=== PATIENT | female | born 1995 | race Caucasian/White ===

== ENCOUNTER 2016-10-15 15:25 | Emergency (ER) | payer MEDICAID ==
[2016-10-15 15:38] VITALS: BP 137/65
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
== END 2016-10-15 17:14 | disposition home or self-care (01) ==
LOC: ER 15:25
DX: O9A.211 Injury, poisoning and certain other consequences of external causes complicating pregnancy, first trimester (principal); S70.02XA Contusion of left hip, initial encounter; W18.09XA Striking against other object with subsequent fall, initial encounter; O99.89 Other specified diseases and conditions complicating pregnancy, childbirth and the puerperium; R10.30 Lower abdominal pain, unspecified; O26.891 Other specified pregnancy related conditions, first trimester; M54.5 Low back pain; Z3A.01 Less than 8 weeks gestation of pregnancy; Z87.81 Personal history of (healed) traumatic fracture
CPT/HCPCS: 99283

== ENCOUNTER 2016-10-16 09:28 | Emergency (ER) | payer MEDICAID ==
[2016-10-16 09:34] VITALS: BP 139/78
[2016-10-16 10:18] LABS: APPEARANCE,URINE SLIGHTLY-CLOUDY; BILIRUBIN,URINE NEGATIVE (NEGATIVE); GLUCOSE, URINE NEGATIVE (NEGATIVE); KETONES,URINE NEGATIVE (NEGATIVE); LEUKOCYTE ESTERASE,URINE NEGATIVE (NEGATIVE); NITRITE,URINE NEGATIVE (NEGATIVE); PROTEIN,URINE NEGATIVE (NEGATIVE); UROBILINOGEN,URINE NEGATIVE mg/dL (<2.0)
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
== END 2016-10-16 10:31 | disposition home or self-care (01) ==
LOC: ER 09:28
DX: O26.891 Other specified pregnancy related conditions, first trimester (principal); R10.2 Pelvic and perineal pain
CPT/HCPCS: 81001; 81025; 87086; 99284

== ENCOUNTER 2016-12-18 15:18 | Emergency (ER) | payer MEDICAID ==
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
[2016-12-18 17:57] LABS: ABSOLUTE EOSINOPHILS # (AUTO) 0.1 10^3/uL (0.0-0.6); ABSOLUTE LYMPHOCYTES (AUTO) 2.1 10^3/uL (0.5-4.7); ABSOLUTE MONOCYTES (AUTO) 0.9 10^3/uL (0.1-1.4); ABSOLUTE NEUT (AUTO) 7.5 10^3/uL (1.7-8.2); BASOPHILS % (AUTO) 0.3 % (0-2); EOSINOPHILS % (AUTO) 0.7 % (0-6); HEMATOCRIT 38.9 % (36.0-47.0); HEMOGLOBIN 13.1 g/dL (12.0-15.5); HGB HCT DIFFERENCE 0.4; LYMPHOCYTES % (AUTO) 19.9 % (13-45); MEAN CORPUSCULAR HEMOGLOBIN 28.6 pg (27.0-33.4); MEAN CORPUSCULAR HGB CONC 33.5 g/dL (32.0-36.0); MEAN CORPUSCULAR VOLUME 85 fl (80-97); MONOCYTES % (AUTO) 8.6 % (3-13); RED BLOOD COUNT 4.57 10^6/uL (3.72-5.28); RED CELL DISTRIBUTION WIDTH 13.1 % (11.5-14.0); SEGMENTED NEUTROPHILS % (AUTO) 70.5 % (42-78); WHITE BLOOD COUNT 10.6 10^3/uL (4.0-10.5)
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
[2016-12-18 18:05] LABS: APPEARANCE,URINE SLIGHTLY-CLOUDY; BILIRUBIN,URINE NEGATIVE (NEGATIVE); GLUCOSE, URINE NEGATIVE (NEGATIVE); KETONES,URINE NEGATIVE (NEGATIVE); LEUKOCYTE ESTERASE,URINE NEGATIVE (NEGATIVE); NITRITE,URINE NEGATIVE (NEGATIVE); PROTEIN,URINE NEGATIVE (NEGATIVE); URINE SPECIFIC GRAVITY 1.025; UROBILINOGEN,URINE NEGATIVE mg/dL (<2.0)
[2016-12-18] MEDS ORDERED: METRONIDAZOLE 500 MG TABLET PO ONE (18:26)
[2016-12-18 19:40] VITALS: BP 122/66
[2016-12-18 19:42] LABS: CHLAM PCR NOT DETECTED (NOT DETECT)
== END 2016-12-18 19:25 | disposition home or self-care (01) ==
LOC: ER 15:18
DX: O23.592 Infection of other part of genital tract in pregnancy, second trimester (principal); N76.0 Acute vaginitis; B96.89 Other specified bacterial agents as the cause of diseases classified elsewhere; O46.92 Antepartum hemorrhage, unspecified, second trimester; R31.9 Hematuria, unspecified; R30.0 Dysuria; R10.30 Lower abdominal pain, unspecified; Z3A.16 16 weeks gestation of pregnancy; R10.2 Pelvic and perineal pain
CPT/HCPCS: 36415; 81001; 85025; 86900; 86901; 87210; 87491; 87591; 99284

== ENCOUNTER 2017-03-22 22:12 | Outpatient (CLI) | payer MEDICAID ==
[2017-03-22 22:58] LABS: APPEARANCE,URINE SLIGHTLY-CLOUDY; BILIRUBIN,URINE NEGATIVE (NEGATIVE); GLUCOSE, URINE NEGATIVE (NEGATIVE); KETONES,URINE NEGATIVE (NEGATIVE); LEUKOCYTE ESTERASE,URINE NEGATIVE (NEGATIVE); NITRITE,URINE NEGATIVE (NEGATIVE); PROTEIN,URINE NEGATIVE (NEGATIVE); UROBILINOGEN,URINE NEGATIVE mg/dL (<2.0)
[2017-03-22 23:06] LABS: AMNISURE (ROM) NEGATIVE (NEGATIVE)
[2017-03-22 23:09] LABS: URINE BARBITURATES SCREEN NEGATIVE; URINE METHADONE SCREEN NEGATIVE; URINE OPIATES LOW NEGATIVE; URINE PHENCYCLIDINE SCREEN NEGATIVE
== END 2017-03-22 23:25 | disposition home or self-care (01) ==
LOC: LC 22:12
PROVIDERS: ATTEND Student in an Organized Health Care Education/Training Program
DX: O47.9 False labor, unspecified (principal)
CPT/HCPCS: 80307; 81001; 84112

== ENCOUNTER 2017-05-27 12:18 | Outpatient (CLI) | payer MEDICAID ==
[2017-05-27 12:47] LABS: APPEARANCE,URINE SLIGHTLY-CLOUDY; BILIRUBIN,URINE NEGATIVE (NEGATIVE); COLOR,URINE YELLOW; GLUCOSE, URINE NEGATIVE (NEGATIVE); KETONES,URINE NEGATIVE (NEGATIVE); LEUKOCYTE ESTERASE,URINE TRACE (NEGATIVE); NITRITE,URINE NEGATIVE (NEGATIVE); PROTEIN,URINE NEGATIVE (NEGATIVE); UROBILINOGEN,URINE NEGATIVE mg/dL (<2.0)
[2017-05-27 13:00] LABS: AMNISURE (ROM) NEGATIVE (NEGATIVE)
[2017-05-27 13:03] LABS: URINE AMPHETAMINES SCREEN NEGATIVE; URINE BARBITURATES SCREEN NEGATIVE; URINE BENZODIAZEPINES SCREEN NEGATIVE; URINE COCAINE SCREEN NEGATIVE; URINE MARIJUANA (THC) SCREEN NEGATIVE; URINE METHADONE SCREEN NEGATIVE; URINE PHENCYCLIDINE SCREEN NEGATIVE
--- NOTE | 2017-05-27 13:43 | Non Stress Test Report ---
Non Stress Test Datetime Report Generated by CPN: 05/27/2017 13:42 DEMOGRAPHIC EGA NST: 39.0 INDICATION Indication for Study: Ordered by Provider Indication for Study (NST) Other: LC VITAL SIGNS Temperature - NST: 97.6 Pulse - NST: 77 RESP - NST: 15 NBPSYS NST: 112 NBPDIA NST: 64 MONITORING Monitor Explained: Monitor Explained; Test Explained; Patient Verbalized Understanding Time on Monitor: 05/27/2017 12:33 Time off Monitor: 05/27/2017 13:02 NST Duration: 29 NST INTERVENTIONS NST Interventions: PO Hydration Physician Notified NST: P. Nova CNM BABY A: [id number] BABY A Movement : Present Contraction Frequency : none FHR Baseline : 150 Accelerations : 15X15 Decelerations : None Variability : Moderate 6-25bpm NST Review: Meets Criteria for Reactive NST NST Review and Verified By : Ally Pruett RN NST Results: Reactive NST REPORT Report Trigger: Send Report
== END 2017-05-27 13:32 | disposition home or self-care (01) ==
LOC: LC 12:18
PROVIDERS: ATTEND Obstetrics & Gynecology
PROC: 4A1HXCZ Monitoring of Products of Conception, Cardiac Rate, External Approach (ICD-10-PCS; principal; 2017-05-27)
DX: O47.1 False labor at or after 37 completed weeks of gestation (principal); Z3A.39 39 weeks gestation of pregnancy
CPT/HCPCS: 59025; 80307; 81005; 84112

== ENCOUNTER 2017-06-07 10:01 | Outpatient (CLI) | payer MEDICAID ==
[2017-06-07 10:32] LABS: APPEARANCE,URINE SLIGHTLY-CLOUDY; BILIRUBIN,URINE NEGATIVE (NEGATIVE); COLOR,URINE YELLOW; GLUCOSE, URINE NEGATIVE (NEGATIVE); KETONES,URINE NEGATIVE (NEGATIVE); LEUKOCYTE ESTERASE,URINE NEGATIVE (NEGATIVE); NITRITE,URINE NEGATIVE (NEGATIVE); PROTEIN,URINE NEGATIVE (NEGATIVE); URINE SPECIFIC GRAVITY 1.013; UROBILINOGEN,URINE NEGATIVE mg/dL (<2.0)
[2017-06-07 10:40] LABS: AMNISURE (ROM) NEGATIVE (NEGATIVE)
[2017-06-07 10:56] LABS: URINE AMPHETAMINES SCREEN NEGATIVE; URINE BARBITURATES SCREEN NEGATIVE; URINE BENZODIAZEPINES SCREEN NEGATIVE; URINE COCAINE SCREEN NEGATIVE; URINE MARIJUANA (THC) SCREEN NEGATIVE; URINE METHADONE SCREEN NEGATIVE; URINE PHENCYCLIDINE SCREEN NEGATIVE
== END 2017-06-07 10:51 | disposition home or self-care (01) ==
LOC: LC 10:01
PROVIDERS: ATTEND Obstetrics & Gynecology
PROC: 4A1HXCZ Monitoring of Products of Conception, Cardiac Rate, External Approach (ICD-10-PCS; principal; 2017-06-07)
DX: O47.1 False labor at or after 37 completed weeks of gestation (principal); O48.0 Post-term pregnancy; Z3A.40 40 weeks gestation of pregnancy
CPT/HCPCS: 59025; 80307; 81005; 84112

== ENCOUNTER 2017-06-09 06:09 | Inpatient (IN) | payer MEDICAID ==
[2017-06-09] MEDS ORDERED: OXYTOCIN/NORMAL SALINE 20 UNIT/1,000 ML RTUINJ ONE (06:13)
[2017-06-09] MEDS ORDERED: LIDOCAINE 1% INJ-PF (10 MG/ML) 30 ML SDV ONE (06:13)
[2017-06-09] MEDS ORDERED: MISOPROSTOL 0.2 MG TABLET ONE (06:13)
[2017-06-09] MEDS ORDERED: RINGERS SOLUTION,LACTATED 1,000 ML IV PRN (06:19)
[2017-06-09] MEDS ORDERED: RINGERS SOLUTION,LACTATED 300 ML IV ONE (06:19)
[2017-06-09] MEDS ORDERED: OXYTOCIN/NORMAL SALINE 20 UNIT/1,000 ML RTUINJ IV PRN ×2 (06:19→20:35)
[2017-06-09 07:20] LABS: ABSOLUTE EOSINOPHILS # (AUTO) 0.1 10^3/uL (0.0-0.6); ABSOLUTE LYMPHOCYTES (AUTO) 2.3 10^3/uL (0.5-4.7); ABSOLUTE NEUT (AUTO) 7.5 10^3/uL (1.7-8.2); BASOPHILS % (AUTO) 0.1 % (0-2); EOSINOPHILS % (AUTO) 0.7 % (0-6); HEMATOCRIT 32.8 % (36.0-47.0); HEMOGLOBIN 10.9 g/dL (12.0-15.5); LYMPHOCYTES % (AUTO) 20.8 % (13-45); MEAN CORPUSCULAR HEMOGLOBIN 27.3 pg (27.0-33.4); MEAN CORPUSCULAR HGB CONC 33.3 g/dL (32.0-36.0); MEAN CORPUSCULAR VOLUME 82 fl (80-97); MONOCYTES % (AUTO) 9.2 % (3-13); PLATELET COUNT 196 10^3/uL (150-450); RED BLOOD COUNT 4.01 10^6/uL (3.72-5.28); RED CELL DISTRIBUTION WIDTH 14.5 % (11.5-14.0); SEGMENTED NEUTROPHILS % (AUTO) 69.2 % (42-78); TOTAL CELLS COUNTED % (AUTO) 100 %; WHITE BLOOD COUNT 10.8 10^3/uL (4.0-10.5)
[2017-06-09 07:59] LABS: APPEARANCE,URINE CLOUDY; BILIRUBIN,URINE NEGATIVE (NEGATIVE); COLOR,URINE YELLOW; GLUCOSE, URINE NEGATIVE (NEGATIVE); KETONES,URINE NEGATIVE (NEGATIVE); LEUKOCYTE ESTERASE,URINE NEGATIVE (NEGATIVE); NITRITE,URINE NEGATIVE (NEGATIVE); PROTEIN,URINE NEGATIVE (NEGATIVE); URINE SPECIFIC GRAVITY 1.013; UROBILINOGEN,URINE NEGATIVE mg/dL (<2.0)
[2017-06-09 08:16] LABS: URINE AMPHETAMINES SCREEN NEGATIVE; URINE BARBITURATES SCREEN NEGATIVE; URINE BENZODIAZEPINES SCREEN NEGATIVE; URINE COCAINE SCREEN NEGATIVE; URINE MARIJUANA (THC) SCREEN NEGATIVE; URINE METHADONE SCREEN NEGATIVE; URINE PHENCYCLIDINE SCREEN NEGATIVE
--- NOTE | 2017-06-09 11:43 | L&D Progress Notes ---
PROGRESS NOTES Datetime Report Generated by CPN: 06/09/2017 11:43 PROGRESS NOTE Impression: Normal Progression of Labor Procedures: Sterile Vag Exam Plan: Continue Present Management Informed Consent Obtained: Vaginal Delivery; Induction of Labor; Risks, Benefits and Alternatives Discussed Comment: pitocin IOL for late term IUP. normal progression of labor. continue pitocin IOL, anticipate VAGINAL EXAM Dilatation: 4 Dilatation: 2 Effacement: c Effacement: 80 Station: -2 Station: -1 Contractions: q 1-2 mins Contractions: rare MEMBRANES Membranes: Intact FETUS A FHR - Baseline: 135 Variability: Moderate 6-25bpm Accelerations: 15X15 Decelerations: None FHR Category: Category I : 40+6 Estimated Weight (gm): 3600 Presentation: Vertex SIGNATURE SIGNATURE: [id number] SIGNATURE: [id number] Assignment: Angélica Best MD Signature: with User ID: [email or web address] : with User ID: [email or web address]
[2017-06-09] MEDS ORDERED: MORPHINE SULFATE 10 MG/ML INJ IV ONE (13:40)
[2017-06-09] MEDS ORDERED: MORPHINE SULFATE 10 MG/ML INJ ONE (13:51)
--- NOTE | 2017-06-09 16:30 | L&D Progress Notes ---
PROGRESS NOTES Datetime Report Generated by CPN: 06/09/2017 16:30 PROGRESS NOTE Impression: Normal Progression of Labor Procedures: Sterile Vag Exam Plan: Continue Present Management Comment: cx changed to lip on left, station is still -1, pt changing positions frequently, dicussed progress with Dr Best. continue pitocin IOL, anticipate VAGINAL EXAM Dilatation: AL Effacement: c Station: -1 Contractions: q3 mins MEMBRANES Membranes: Ruptured Amniotic Fluid Color: Clear FETUS A FHR - Baseline: 120 Variability: Moderate 6-25bpm Accelerations: 15X15 Decelerations: None : 40+6 FETUS C SIGNATURE: [id number] Assignment: Angélica Best MD Signature: with User ID: [email or web address] : with User ID: [email or web address]
[2017-06-09] MEDS ORDERED: PROMETHAZINE HCL 25 MG SUPP.RECT PR PRN (20:35)
[2017-06-09] MEDS ORDERED: ACETAMINOPHEN WITH CODEINE #3 TABLET PO PRN ×2 (20:35)
[2017-06-09] MEDS ORDERED: DIPH/PERTUSS(ACELL)/TETANUS VAC/PF 0.5 ML SYR (>=10YO) IM PRN (20:35)
[2017-06-09] MEDS ORDERED: NA PHOS,M-B/NA PHOS,DI-BA (ADULT) 133 ML ENEMA PR PRN (20:35)
[2017-06-09] MEDS ORDERED: PROMETHAZINE HCL INJ 25 MG/1 ML VIAL IV PRN (20:35)
[2017-06-09] MEDS ORDERED: ACETAMINOPHEN 650 MG SUPP.RECT PR PRN (20:35)
[2017-06-09] MEDS ORDERED: BENZOCAINE/MENTHOL AEROSOL SPRAY 56 ML TOP PRN (20:35)
[2017-06-09] MEDS ORDERED: MEASLES,MUMPS&RUBELLA VACC/PF 0.5 ML VIAL SUBCUT PRN (20:35)
[2017-06-09] MEDS ORDERED: ZOLPIDEM TARTRATE 5 MG TABLET PO PRN (20:35)
[2017-06-09] MEDS ORDERED: GLYCERIN/WITCH HAZEL LEAF 1 EACH MED..PAD TP PRN (20:35)
[2017-06-09] MEDS ORDERED: PROMETHAZINE HCL 25 MG TABLET PO PRN (20:35)
[2017-06-09] MEDS ORDERED: DIPHENHYDRAMINE HCL 25 MG CAPSULE PO PRN (20:35)
[2017-06-09] MEDS ORDERED: DIBUCAINE 1% OINTMENT 28 GM TP PRN (20:35)
[2017-06-09] MEDS ORDERED: MAGNESIUM HYDROXIDE SUSP 30 ML UDCUP PO PRN (20:35)
[2017-06-09] MEDS ORDERED: PSEUDOEPHEDRINE HCL 30 MG TABLET PO PRN (20:35)
[2017-06-09] MEDS ORDERED: MISOPROSTOL 0.2 MG TABLET PR ONE (21:32)
--- NOTE | 2017-06-09 21:40 | Delivery Summary ---
Del Sum A-C Datetime Report Generated by CPN: 06/09/2017 21:40 DELIVERY PERSONNEL DELIVERY PERSONNEL: [id number] Delivery Doctor:: Angélica Best MD Labor and Delivery Nurse:: Tina Montemayor RNcredit reporter Nurse:: Chastity Layne RN Legal Secretary Receptionist:: Rebeca Motta RN Vp Rheumatology/CMM INSPECTOR: Rosalva Green, ST MATERNAL INFORMATION Delivery Anesthesia: None Medications After Delivery: Pitocin Bolus-Please Comment; Pitocin Drip 20 Units/1000ml NSS Meds After Delivery Comment: pitocin 20 units in 1 L NS bolusing per order Maternal Complications: None Provider Comments: VMI delivered in direct OA presentation. No nuchal cord. Shoulders and body delivered without difficulty. Cord Doubly clamped and cut and to maternal abdomen. Placenta delivered intact spontaneously. FF at U. Good hemostasis after repair. straight cath due to full bladder prior to repair. Mother and baby stable upon provider leaving the room. LABOR SUMMARY EDC: 06/03/2017 00:00 No. Babies in Womb: 1 Labor Anesthesia: None LABOR INFORMATION Reason for Induction: Post Dates Onset of Labor: 06/09/2017 11:34 Complete Dilatation: 06/09/2017 16:41 Oxytocin: Induction Group B Beta Strep: negative Antibiotics # of Doses: 0 Antibiotics Time of Last Dose: na Name of Antibiotic Given: na Steroids Given: None Reason Steroids Not Administered: Not Applicable MEMBRANES Membranes Rupture Method: Spontaneous Rupture of Membranes: 06/09/2017 12:42 Length of Rupture (hr): 7.42 Amniotic Fluid Color: Clear Amniotic Fluid Amount: Small Amniotic Fluid Odor: Normal STAGES OF LABOR Stage 1 hr: 5 Stage 1 min: 7 Stage 2 hr: 3 Stage 2 min: 26 Stage 3 hr: 0 Stage 3 min: 4 Total Time in Labor hr: 8 Total Time in Labor min: 37 VAGINAL DELIVERY Episiotomy: None Laceration #1: Perineal Laceration Extension #1: Second Degree Laceration Repair: Yes Laceration Repair Note: repaired in usual fashion Sponge Count Correct: N/A Sharps Count Correct: Yes CSECTION DELIVERY Primary Indication: N/A Secondary Indication: N/A CSection Incidence: N/A Labor: N/A Elective: N/A CSection Incision: N/A BABY A INFORMATION Delivery Date/Time: 06/09/2017 20:07 Method of Delivery: Vaginal Born in Route : No : N/A Forceps: N/A Vacuum Extraction: N/A Shoulder Dystocia : No PRESENTATION/POSITION BABY A Presentation: Cephalic Cephalic Presentation: Vertex Vertex Position: Occipital Anterior Breech Presentation: N/A PLACENTA INFORMATION BABY A Placenta Delivery Time : 06/09/2017 20:11 Placenta Method of Delivery: Spontaneous Placenta Status: Delivered SCORES BABY A Heart Rate 1 min: >100 bpm Resp Effort 1 min: Good Cry Reflex Irritability 1 min: Cough or Sneeze or Pulls Away Muscle Tone 1 min: Active Motion Color 1 min: Body Alto, Extremities Blue Resuscitation Effort 1 min: Tactile Stimulation SCORE 1 MIN: 9 Heart Rate 5 min: >100 bpm Resp Effort 5 min: Good Cry Reflex Irritability 5 min: Cough or Sneeze or Pulls Away Muscle Tone 5 min: Active Motion Color 5 min: Body Alto, Extremities Blue Resuscitation Effort 5 min: Tactile Stimulation SCORE 5 MIN: 9 INFORMATION BABY A Gestational Age at Delivery: 40.6 Gestational Status: Full Term- 39- 40.6 Weeks Outcome : Liveborn Condition : Stable Sex: Male IDENTIFICATION BABY A Infant Verification Date/Time: 06/09/2017 20:22 ID Band Number: [id number] Mother's Name Verified: Yes RN Verifying : K Kalia RN Additional Verifying Personnel: D Himanshu US WEIGHT/LENGTH BABY A Infant Birthweight (gm): 3680 Infant Weight (lb): 8 Weight (oz): 2 Infant Length (in): 20.00 Length (cm): 50.80 CORD INFORMATION BABY A No. Cord Vessels: 3 Nuchal Cord : N/A Cord Blood Taken: Yes-For Storage (Mom's Blood type +) ASSESSMENT BABY A Skin to Skin: Yes Skin to Skin Time (min): 30 SIGNATURES Signature: with User ID: Flora : Clemente was personally available for consultation and serving as supervising physician for the P.
[2017-06-09] MEDS ORDERED: NIFEDIPINE 30 MG TAB.ER.24 PO ONE ×2 (22:41→23:00)
[2017-06-09 23:14] LABS: HEMATOCRIT 34.2 % (36.0-47.0); HEMOGLOBIN 11.1 g/dL (12.0-15.5); MEAN CORPUSCULAR HEMOGLOBIN 26.8 pg (27.0-33.4); MEAN CORPUSCULAR HGB CONC 32.4 g/dL (32.0-36.0); MEAN CORPUSCULAR VOLUME 83 fl (80-97); PLATELET COUNT 199 10^3/uL (150-450); RED BLOOD COUNT 4.14 10^6/uL (3.72-5.28); RED CELL DISTRIBUTION WIDTH 14.5 % (11.5-14.0)
[2017-06-09 23:27] LABS: ALANINE AMINOTRANSFERASE 18 U/L (9-52); ALBUMIN 3.2 g/dL (3.5-5.0); ALKALINE PHOSPHATASE 184 U/L (38-126); ANION GAP 12 (5-19); ASPARTATE AMINO TRANSFERASE 27 U/L (14-36); BILIRUBIN,TOTAL 0.2 mg/dL (0.2-1.3); BLOOD UREA NITROGEN 10 mg/dL (7-20); CALCIUM 9.5 mg/dL (8.4-10.2); CARBON DIOXIDE 17 mmol/L (22-30); CHLORIDE 108 mmol/L (98-107); GLUCOSE 167 mg/dL (75-110); LDH 554 U/L (313-618); POTASSIUM 3.7 mmol/L (3.6-5.0); SODIUM 137.3 mmol/L (137-145); TOTAL PROTEIN 5.5 g/dL (6.3-8.2); URIC ACID 5.3 mg/dL (2.5-6.2)
[2017-06-09 23:33] LABS: WHITE BLOOD COUNT 24.1 10^3/uL (4.0-10.5)
[2017-06-09 23:39] LABS: ABSOLUTE LYMPHOCYTES# (MANUAL) 0.2 10^3/uL (0.5-4.7); ABSOLUTE MONOCYTES # (MANUAL) 0.7 10^3/uL (0.1-1.4); ABSOLUTE NEUTROPHILS# (MANUAL) 23.1 10^3/uL (1.7-8.2); BAND NEUTROPHILS % (MANUAL) 2 % (3-5); BASOPHILS % (MANUAL) 0 % (0-2); EOSINOPHILS % (MANUAL) 0 % (0-6); LYMPHOCYTES % (MANUAL) 1 % (13-45); MONOCYTES % (MANUAL) 3 % (3-13); SEGMENTED NEUTROPHILS % (MAN) 94 % (42-78); TOTAL CELLS COUNTED 100
[2017-06-10 00:06] LABS: PLATELET COMMENT ADEQUATE
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
[2017-06-10] MEDS: FAMOTIDINE 20 MG TABLET PO SCH ×3 (02:00→22:36)
[2017-06-10] MEDS: IBUPROFEN 800 MG TABLET PO SCH ×4 (02:00→22:36)
[2017-06-10 07:39] LABS: HEMATOCRIT 30.4 % (36.0-47.0); MEAN CORPUSCULAR HGB CONC 32.7 g/dL (32.0-36.0); MEAN CORPUSCULAR VOLUME 83 fl (80-97); PLATELET COUNT 185 10^3/uL (150-450); RED BLOOD COUNT 3.69 10^6/uL (3.72-5.28); RED CELL DISTRIBUTION WIDTH 14.7 % (11.5-14.0); WHITE BLOOD COUNT 21.2 10^3/uL (4.0-10.5)
--- NOTE | 2017-06-10 10:20 | PDOC PROGRESS REPORT ---
Subjective-OB Progress Note for:: 06/10/17 Subjective: No problems per patient. Physical Exam (OB) Vital Signs: Temp Pulse Resp BP Pulse Ox 98.3 F 73 16 133/81 H 100 06/10/17 08:33 06/10/17 08:33 06/10/17 08:33 06/10/17 08:33 06/10/17 08:33 Intake & Output 06/09/17 06/10/17 06/11/17 06:59 06:59 06:59 Intake Total 300 Balance 300 Weight 99.3 kg - PIH/Pre-Eclampsia DTR's: 1 + Clonus: Negative Headache: Absent Epigastric Pain: No Visual Changes: No - Lochia Lochia Amount: Scant < 10 ml Lochia Color: Rubra/Red - Abdomen Description: Soft, Round Hernia Present: No Bowel Sounds: Normoactive Flatus Presence: Present Stool: No Fundal Description: Firm, Midline Fundal Height: u/u - u/2 Objective-Diagnostic Laboratory: 06/10/17 07:22 06/09/17 22:58 06/09/17 06/09/17 06/10/17 22:58 22:58 07:22 WBC 24.1 H D 21.2 H RBC 4.14 3.69 L Hgb 11.1 L 10.0 L Hct 34.2 L 30.4 L MCV 83 83 MCH 26.8 L 27.0 MCHC 32.4 32.7 RDW 14.5 H 14.7 H Plt Count 199 185 Seg Neutrophils % Not Reportable Lymphocytes % Not Reportable Monocytes % Not Reportable Eosinophils % Not Reportable Basophils % Not Reportable Absolute Neutrophils Not Reportable Absolute Lymphocytes Not Reportable Absolute Monocytes Not Reportable Absolute Eosinophils Not Reportable Absolute Basophils Not Reportable Sodium 137.3 Potassium 3.7 Chloride 108 H Carbon Dioxide 17 L Anion Gap 12 BUN 10 Creatinine 0.72 Est GFR ( Amer) > 60 Est GFR (Non-Af Amer) > 60 Glucose 167 H Uric Acid 5.3 Calcium 9.5 Total Bilirubin 0.2 AST 27 ALT 18 Alkaline Phosphatase 184 H Total Protein 5.5 L Albumin 3.2 L
[2017-06-10] MEDS: DOCUSATE SODIUM 100 MG CAPSULE PO SCH ×2 (11:14→17:37)
[2017-06-10] MEDS: FERROUS SULFATE 325 MG TABLET PO SCH ×2 (11:16→17:38)
[2017-06-10] MEDS: SENNOSIDES/DOCUSATE 8.6-50 MG 1 EACH TABLET PO SCH (11:16)
[2017-06-10] MEDS: NIFEDIPINE 30 MG TAB.ER.24 PO SCH (11:20)
[2017-06-10] MEDS: PRENATAL VITAMIN W DHA CAPSULE PO SCH (11:21)
[2017-06-11] MEDS: IBUPROFEN 800 MG TABLET PO SCH (05:37)
[2017-06-11 09:22] VITALS: BP 133/89
[2017-06-11] MEDS: NIFEDIPINE 30 MG TAB.ER.24 PO SCH (10:14)
[2017-06-11] MEDS: DOCUSATE SODIUM 100 MG CAPSULE PO SCH (10:14)
[2017-06-11] MEDS: SENNOSIDES/DOCUSATE 8.6-50 MG 1 EACH TABLET PO SCH (10:14)
[2017-06-11] MEDS: FAMOTIDINE 20 MG TABLET PO SCH (10:14)
[2017-06-11] MEDS: PRENATAL VITAMIN W DHA CAPSULE PO SCH (10:14)
[2017-06-11] MEDS: FERROUS SULFATE 325 MG TABLET PO SCH (10:14)
--- NOTE | 2017-06-11 10:57 | PDOC DISCHARGE SUMMARY ---
Final Diagnosis Discharge Date: 06/11/17 - Final Diagnosis (1) Anemia affecting in third trimester Is this a current diagnosis for this admission?: Yes (2) Depression Is this a current diagnosis for this admission?: Yes (3) Elective induction of labor planned Is this a current diagnosis for this admission?: Yes (4) Vaginal delivery Is this a current diagnosis for this admission?: Yes Discharge Data - Discharge Medication Prescriptions: Docusate Sodium [Colace 100 mg Capsule] 100 mg PO BID #60 capsule Ferrous Sulfate [Feosol 325 mg Tablet] 325 mg PO BID #60 tablet Ibuprofen [Motrin 800 mg Tablet] 800 mg PO Q8 #60 tablet Nifedipine [Procardia XL 30 mg Tablet] 30 mg PO DAILY #30 tab.er.24 Home Medications: Docusate Sodium [Colace 100 mg Capsule] 100 mg PO BID #60 capsule 06/11/17 Ferrous Sulfate [Feosol 325 mg Tablet] 325 mg PO BID #60 tablet 06/11/17 Ibuprofen [Motrin 800 mg Tablet] 800 mg PO Q8 #60 tablet 06/11/17 Nifedipine [Procardia XL 30 mg Tablet] 30 mg PO DAILY #30 tab.er.24 06/11/17 Gestational Age: 40.6 Reason(s) for Admission: Induction of Labor Procedures: NST Intrapartum Procedure(s): Spontaneous Vaginal Delivery Complication(s): Laceration-Perineal Laceration-Degree: 2nd - Data Baby 1 Male at 1 minute: 9 at 5 minutes: 9 Weight: 3680 kg Home with Mother: Yes Complications: No - Diagnosis Test Laboratory: Temp Pulse Resp BP Pulse Ox 98.0 F 72 16 133/89 H 100 06/11/17 08:09 06/11/17 08:09 06/11/17 08:09 06/11/17 08:09 06/11/17 08:09 06/09/17 06/09/17 06/09/17 06:20 06:57 22:58 RBC 4.01 4.14 Hgb 10.9 L 11.1 L Hct 32.8 L 34.2 L Urine Opiates Screen NEGATIVE 06/10/17 07:22 RBC 3.69 L Hgb 10.0 L Hct 30.4 L Urine Opiates Screen - Discharge information/Instructions Discharge Activity: Activity As Tolerated, Pelvic Rest, No tub bath Discharge Diet: Regular Disposition: HOME, SELF-CARE Follow up with: [facility] in: 1, Weeks - bp check in 1 week, hx depression
== END 2017-06-11 12:44 | disposition home or self-care (01) | DRG 775 ==
LOC: LR 06:09 → 2S 06-10 00:09
PROVIDERS: ADMIT Student in an Organized Health Care Education/Training Program; ATTEND Student in an Organized Health Care Education/Training Program
PROC: 10E0XZZ Delivery of Products of Conception, External Approach (ICD-10-PCS; principal; 2017-06-09)
PROC: 0KQM0ZZ Repair Perineum Muscle, Open Approach (ICD-10-PCS; 2017-06-09)
PROC: 3E033VJ Introduction of Other Hormone into Peripheral Vein, Percutaneous Approach (ICD-10-PCS; 2017-06-09)
DX: O48.0 Post-term pregnancy (principal); O70.1 Second degree perineal laceration during delivery; O99.344 Other mental disorders complicating childbirth; F32.9 Major depressive disorder, single episode, unspecified; O99.02 Anemia complicating childbirth; D64.9 Anemia, unspecified; Z3A.40 40 weeks gestation of pregnancy; Z37.0 Single live birth; Z62.810 Personal history of physical and sexual abuse in childhood; Z87.81 Personal history of (healed) traumatic fracture
CPT/HCPCS: 36415; 80053; 80307; 81005; 83615; 84550; 85025; 85027; 86592; 86850; 86900; 86901; J2270; J2590; J3490

== ENCOUNTER 2017-09-27 09:02 | Emergency (ER) | payer MEDICAID ==
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
[2017-09-27 09:53] LABS: ABSOLUTE EOSINOPHILS # (AUTO) 0.1 10^3/uL (0.0-0.6); ABSOLUTE LYMPHOCYTES (AUTO) 2.8 10^3/uL (0.5-4.7); ABSOLUTE MONOCYTES (AUTO) 0.9 10^3/uL (0.1-1.4); ABSOLUTE NEUT (AUTO) 4.3 10^3/uL (1.7-8.2); BASOPHILS % (AUTO) 0.5 % (0-2); EOSINOPHILS % (AUTO) 1.7 % (0-6); HEMATOCRIT 39.2 % (36.0-47.0); LYMPHOCYTES % (AUTO) 34.3 % (13-45); MEAN CORPUSCULAR HEMOGLOBIN 27.5 pg (27.0-33.4); MEAN CORPUSCULAR HGB CONC 33.3 g/dL (32.0-36.0); MEAN CORPUSCULAR VOLUME 83 fl (80-97); MONOCYTES % (AUTO) 10.8 % (3-13); PLATELET COUNT 285 10^3/uL (150-450); RED BLOOD COUNT 4.74 10^6/uL (3.72-5.28); RED CELL DISTRIBUTION WIDTH 12.5 % (11.5-14.0); SEGMENTED NEUTROPHILS % (AUTO) 52.7 % (42-78); TOTAL CELLS COUNTED % (AUTO) 100 %; WHITE BLOOD COUNT 8.1 10^3/uL (4.0-10.5)
[2017-09-27 10:05] LABS: AMORPHOUS SEDIMENT,URINE TRACE /HPF; APPEARANCE,URINE CLOUDY; BILIRUBIN,URINE NEGATIVE (NEGATIVE); COLOR,URINE YELLOW; GLUCOSE, URINE NEGATIVE (NEGATIVE); KETONES,URINE NEGATIVE (NEGATIVE); LEUKOCYTE ESTERASE,URINE TRACE (NEGATIVE); NITRITE,URINE POSITIVE (NEGATIVE); PROTEIN,URINE NEGATIVE (NEGATIVE); URINE SPECIFIC GRAVITY 1.025; UROBILINOGEN,URINE NEGATIVE mg/dL (<2.0)
[2017-09-27 10:13] LABS: ALANINE AMINOTRANSFERASE 26 U/L (9-52); ALKALINE PHOSPHATASE 58 U/L (38-126); ANION GAP 12 (5-19); ASPARTATE AMINO TRANSFERASE 19 U/L (14-36); BLOOD UREA NITROGEN 20 mg/dL (7-20); CALCIUM 9.9 mg/dL (8.4-10.2); CARBON DIOXIDE 28 mmol/L (22-30); CHLORIDE 105 mmol/L (98-107); GLUCOSE 80 mg/dL (75-110); POTASSIUM 4.7 mmol/L (3.6-5.0); SODIUM 144.7 mmol/L (137-145); TOTAL PROTEIN 7.1 g/dL (6.3-8.2)
[2017-09-27 10:14] LABS: BILIRUBIN,TOTAL < 0.1 mg/dL (0.2-1.3)
[2017-09-27 10:41] VITALS: BP 139/89
== END 2017-09-27 10:41 | disposition home or self-care (01) ==
LOC: ER 09:02
DX: N30.00 Acute cystitis without hematuria (principal); M54.2 Cervicalgia; R50.9 Fever, unspecified; R51 Headache; R11.2 Nausea with vomiting, unspecified; M54.9 Dorsalgia, unspecified
CPT/HCPCS: 36415; 80053; 81001; 81025; 85025; 99283

== ENCOUNTER 2018-04-03 14:28 | Emergency (ER) | payer MEDICAID ==
[2018-04-03] MEDS ORDERED: NORMAL SALINE 1000 ML 1,000 ML IV ONE (15:04)
[2018-04-03] MEDS ORDERED: METHYLPREDNISOLONE INJ 125 MG/2 ML SDV IV ONE (15:05)
[2018-04-03] MEDS ORDERED: DIPHENHYDRAMINE HCL 50 MG/ML VIAL IV ONE (15:05)
[2018-04-03] MEDS ORDERED: FAMOTIDINE INJ/PF 20 MG/2 ML SDV IV ONE (15:05)
[2018-04-03] MEDS ORDERED: EPINEPHRINE INJ/PF 1 MG/1 ML AMPULE IM ONE ×2 (15:06→15:47)
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
--- NOTE | 2018-04-03 15:47 | RADIOLOGY REPORT (SQ) ---
EXAM DESCRIPTION: SOFT TISSUE NECK COMPLETED DATE/TIME: 04/03/2018 3:29 pm REASON FOR STUDY: voice changes, laryngitis, posssible allergic rxn COMPARISON: None. NUMBER OF VIEWS: Two views. TECHNIQUE: AP and lateral radiographic image of the soft tissues of the neck. LIMITATIONS: None. FINDINGS: EPIGLOTTIS: Normal. Contour normal. Aryepiglottic folds normal. PREVERTEBRAL SOFT TISSUES: Normal. No soft tissue swelling. SUBGLOTTIC AREA: Normal. No narrowing. RETROPHARYNGEAL SPACE: Normal. No soft tissue masses. BONES: No significant findings. LUNG APICES: Normal. OTHER: No radiopaque foreign body. No other significant finding. IMPRESSION: NEGATIVE STUDY OF THE SOFT TISSUES OF THE NECK. TECHNICAL DOCUMENTATION: JOB ID: [id number] [email or web address] Rights Reserved Reading location - IP/workstation name: [email or web address]
[2018-04-03 15:50] LABS: ABSOLUTE EOSINOPHILS # (AUTO) 0.1 10^3/uL (0.0-0.6); ABSOLUTE LYMPHOCYTES (AUTO) 4.8 10^3/uL (0.5-4.7); ABSOLUTE MONOCYTES (AUTO) 1.3 10^3/uL (0.1-1.4); ABSOLUTE NEUT (AUTO) 7.7 10^3/uL (1.7-8.2); BASOPHILS % (AUTO) 0.3 % (0-2); EOSINOPHILS % (AUTO) 0.5 % (0-6); HEMATOCRIT 38.5 % (36.0-47.0); HEMOGLOBIN 12.8 g/dL (12.0-15.5); LYMPHOCYTES % (AUTO) 34.3 % (13-45); MEAN CORPUSCULAR HEMOGLOBIN 27.6 pg (27.0-33.4); MEAN CORPUSCULAR HGB CONC 33.2 g/dL (32.0-36.0); MEAN CORPUSCULAR VOLUME 83 fl (80-97); MONOCYTES % (AUTO) 9.3 % (3-13); PLATELET COUNT 297 10^3/uL (150-450); RED BLOOD COUNT 4.64 10^6/uL (3.72-5.28); RED CELL DISTRIBUTION WIDTH 13.1 % (11.5-14.0); SEGMENTED NEUTROPHILS % (AUTO) 55.6 % (42-78); TOTAL CELLS COUNTED % (AUTO) 100 %; WHITE BLOOD COUNT 13.9 10^3/uL (4.0-10.5)
--- NOTE | 2018-04-03 16:28 | ER Document Report ---
ED Allergic Reaction - General Chief Complaint: Allergic Reaction Stated Complaint: THROAT SWELLING Time Seen by Provider: 04/03/18 14:52 Mode of Arrival: Ambulatory Information source: Patient Notes: Patient reports eating shrimp on Wednesday and then later developing hives to the bra area and under her arms. Patient states that she did go to an urgent care on Wednesday which was 2 days ago and she received a steroid shot and a prescription for prednisone. Patient states today around 130 she felt like she was having some swelling to her throat and some voice hoarseness that lasted for 2 hours. Patient states that now her swelling sensation to the throat has resolved and she is feeling much better. Patient denies any difficulty breathing. Patient denies any new foods or detergents. Patient's only new medication is the prednisone that she was prescribed recently. TRAVEL OUTSIDE OF THE [place] IN LAST 30 DAYS: No - HPI Onset: Other - 2 days Onset/Duration: Waxing and waning Quality of pain: No pain Food exposure: Shellfish Skin rash / itching: Trunk, "Hives" Swelling: Throat Similar symptoms previously: No Recently seen / treated by doctor: Yes - Related Data Allergies/Adverse Reactions: adhesive Adverse Reaction (Verified 09/27/17 09:03) Past Medical History - General Information source: Patient - Social History Smoking Status: Never Smoker Frequency of alcohol use: None Drug Abuse: None Occupation: Retail Lives with: Family Family History: Reviewed & Not Pertinent Patient has suicidal ideation: No Patient has homicidal ideation: No - Medical History Medical History: Negative Renal/ Medical History: Denies: Hx Peritoneal Dialysis Musculoskeletal Medical History: Reports Hx Musculoskeletal Trauma - History of neck, back, bilateral arms, ribs and skull fracture Past Surgical History: Reports: Hx Orthopedic Surgery - bilateral arms, back x2 - Immunizations Immunizations up to date: Yes Hx Diphtheria, Pertussis, Tetanus Vaccination: Yes Review of Systems - Review of Systems Constitutional: No symptoms reported. denies: Fever EENT: Throat swelling Cardiovascular: No symptoms reported. denies: Chest pain, Dizziness, Lightheaded Respiratory: No symptoms reported. denies: Cough, Short of breath Gastrointestinal: No symptoms reported. denies: Abdominal pain, Nausea, Vomiting Genitourinary: No symptoms reported Female Genitourinary: No symptoms reported Musculoskeletal: No symptoms reported Skin: Rash Hematologic/Lymphatic: No symptoms reported Neurological/Psychological: No symptoms reported Physical Exam - Vital signs Vitals: Temp Pulse Resp BP Pulse Ox 98.1 F 77 15 125/69 100 04/03/18 14:35 04/03/18 14:35 04/03/18 14:35 04/03/18 14:35 04/03/18 14:35 - General General appearance: Appears well, Alert - HEENT Head: Normocephalic, Atraumatic Eyes: Normal Conjunctiva: Normal Pupils: PERRL Tympanic membrane: Normal Nasal: Normal Mouth/Lips: Normal. No: Angioedema, Caries Mucous membranes: Normal Pharynx: Normal. No: Uvular edema, Potential airway comprom. Neck: Normal, Supple. No: Lymphadenopathy - Respiratory Respiratory status: No respiratory distress Chest status: Nontender Breath sounds: Normal. No: Rales, Rhonchi, Stridor, Wheezing Chest palpation: Normal - Cardiovascular Rhythm: Regular Heart sounds: S1 appreciated, S2 appreciated Murmur: No - Abdominal Inspection: Normal Tenderness: Nontender - Back Back: Normal, Nontender - Extremities General upper extremity: Normal inspection, Normal ROM General lower extremity: Normal inspection, Normal ROM - Neurological Neuro grossly intact: Yes Cognition: Normal Alexander Coma Scale Eye Opening: Spontaneous Alexander Coma Scale Verbal: Oriented Alexander Coma Scale Motor: Obeys Commands Tyler Coma Scale Total: 15 - Psychological Associated symptoms: Normal affect, Normal mood - Skin Skin Temperature: Warm Skin Moisture: Dry Skin irregularity: Rash - Few scattered erythematous patches noted to left axilla Course - Re-evaluation Re-evalutation: 04/03/18 17:30 Dr Peoples to bedside for repeat examination, recommends patient for discharge at this time. Advises giving her a prescription for an EpiPen. 04/03/18 17:50 Patient's respirations even and unlabored, voice clear with no concern for any angioedema or potential airway swelling. - Vital Signs Vital signs: Temp Pulse Resp BP Pulse Ox 98.6 F 88 16 122/66 98 04/03/18 18:16 04/03/18 18:16 04/03/18 18:16 04/03/18 18:16 04/03/18 18:16 - Laboratory Result Diagrams: 04/03/18 15:20 04/03/18 16:48 Laboratory results interpreted by me: 04/03/18 04/03/18 15:20 16:48 WBC 13.9 H Absolute Lymphocytes 4.8 H BUN 29 H 04/03/18 17:50 Labs- Entire Visit 04/03/18 04/03/18 04/03/18 15:20 15:20 16:48 WBC 13.9 H RBC 4.64 Hgb 12.8 Hct 38.5 MCV 83 MCH 27.6 MCHC 33.2 RDW 13.1 Plt Count 297 Seg Neutrophils % 55.6 Lymphocytes % 34.3 Monocytes % 9.3 Eosinophils % 0.5 Basophils % 0.3 Absolute Neutrophils 7.7 Absolute Lymphocytes 4.8 H Absolute Monocytes 1.3 Absolute Eosinophils 0.1 Absolute Basophils 0.0 Sodium Cancelled 140.7 Potassium Cancelled 3.9 Chloride Cancelled 105 Carbon Dioxide Cancelled 25 Anion Gap Cancelled 11 BUN Cancelled 29 H Creatinine Cancelled 0.64 Est GFR ( Amer) Cancelled > 60 Est GFR (Non-Af Amer) Cancelled > 60 Glucose Cancelled 93 Calcium Cancelled 8.9 Total Bilirubin Cancelled 0.2 Direct Bilirubin Cancelled 0.1 Neonat Total Bilirubin Cancelled Not Reportable Neonat Direct Bilirubin Cancelled Not Reportable Neonat Indirect Bili Cancelled Not Reportable AST Cancelled 15 ALT Cancelled 16 Alkaline Phosphatase Cancelled 55 Total Protein Cancelled 6.5 Albumin Cancelled 3.9 - Diagnostic Test Radiology reviewed: Reports reviewed Discharge - Discharge Clinical Impression: Allergic reaction Qualifiers: Encounter type: initial encounter Qualified Code(s): T78.40XA - Allergy, unspecified, initial encounter Condition: Stable Disposition: HOME, SELF-CARE Instructions: Acute Allergic Reaction ([facility]), Use of Diphenhydramine, Epinephrine Additional Instructions: Return immediately for any new or worsening symptoms Followup with your primary care provider, [place], call tomorrow to make a followup appointment Take your steroids at home as prescribed Take Benadryl [id number] as directed to help with your symptoms Prescriptions: Epinephrine [Epipen 2-Oliver] 0.3 mg IM ASDIR PRN #1 unit PRN Reason: Famotidine [Pepcid 20 mg Tablet] 20 mg PO BID #12 tablet Forms: Return to Work
[2018-04-03 17:15] LABS: ALANINE AMINOTRANSFERASE 16 U/L (9-52); ALBUMIN 3.9 g/dL (3.5-5.0); ALKALINE PHOSPHATASE 55 U/L (38-126); ANION GAP 11 (5-19); ASPARTATE AMINO TRANSFERASE 15 U/L (14-36); BILIRUBIN,DIRECT 0.1 mg/dL (0.0-0.4); BILIRUBIN,TOTAL 0.2 mg/dL (0.2-1.3); BLOOD UREA NITROGEN 29 mg/dL (7-20); CALCIUM 8.9 mg/dL (8.4-10.2); CARBON DIOXIDE 25 mmol/L (22-30); CHLORIDE 105 mmol/L (98-107); GLUCOSE 93 mg/dL (75-110); POTASSIUM 3.9 mmol/L (3.6-5.0); SODIUM 140.7 mmol/L (137-145); TOTAL PROTEIN 6.5 g/dL (6.3-8.2)
[2018-04-03 18:17] VITALS: BP 122/66
== END 2018-04-03 18:18 | disposition home or self-care (01) ==
LOC: ER 14:28
DX: T78.40XA Allergy, unspecified, initial encounter (principal); X58.XXXA Exposure to other specified factors, initial encounter
CPT/HCPCS: 99285; 96372; 96361; 96374; 96375; 36415; 85025; 80053; 70360; J1200; J0171; J2930; J7030; S0028